=== PATIENT | female | born 1985 | race Caucasian/White ===

== ENCOUNTER 2020-08-22 20:18 | Emergency (ER) | payer OTHER ==
[~2020-08-22] VITALS: Ht 154.9 cm; Wt 79.4 kg
[2020-08-23 00:17] VITALS: BP 122/80
== END 2020-08-23 00:18 | disposition home or self-care (01) ==
LOC: M.ERS 20:18
DX: S01.111A Laceration without foreign body of right eyelid and periocular area, initial encounter (principal); W22.8XXA Striking against or struck by other objects, initial encounter; Y93.89 Activity, other specified; Y92.89 Other specified places as the place of occurrence of the external cause; Y99.8 Other external cause status

== ENCOUNTER 2020-08-29 10:47 | Emergency (ER) | payer OTHER ==
[~2020-08-29] VITALS: Ht 157.5 cm; Wt 81.7 kg
[2020-08-29 11:52] VITALS: BP 120/60
== END 2020-08-29 11:53 | disposition home or self-care (01) ==
LOC: M.ERS 10:47
DX: S01.111D Laceration without foreign body of right eyelid and periocular area, subsequent encounter (principal); Z48.02 Encounter for removal of sutures; X58.XXXD Exposure to other specified factors, subsequent encounter